=== PATIENT | female | born 1960 | race Hispanic/Latino ===

== ENCOUNTER → 2021-12-04 | Outpatient (CLI) | payer OTHER ==
[~2021-12-04] MED LIST: LIRA0.6P2 SQ; LOSA25TA41 PO; METF-444 PO; TYL3LL PO
== END | disposition home or self-care (01) ==
LOC: SHCH 08:21
PROVIDERS: ATTEND Internal Medicine
DX: I36.1 Nonrheumatic tricuspid (valve) insufficiency (principal); I51.7 Cardiomegaly
CPT/HCPCS: 93306

== ENCOUNTER 2022-03-07 05:51 | Day surgery (SDC) | payer OTHER ==
[2022-03-04 11:47] LABS: CREATININE 0.8 mg/dL (0.5-1.5); POTASSIUM 5.1 mmol/L (3.5-5.1)
[~2022-03-07] VITALS: Ht 154.9 cm; Wt 76.1 kg
[2022-03-07] VITALS (16 sets, daily range): BP systolic 124–143; BP diastolic 51–75
[2022-03-07] MEDS ORDERED: LACTATED RINGERS 1000ML 0 ML IV ONE (06:15)
[2022-03-07] MEDS ORDERED: 0.9%NACL 1000ML 1,000 ML IV ONE (06:42)
[2022-03-07] MEDS ORDERED: LIDOCAINE HCL 1% 20 ML VIAL ONE (07:21)
[2022-03-07] MEDS ORDERED: EPINEPHRINE 1 MG/ML 30ML VIAL IJ ONE (07:22)
[2022-03-07] MEDS ORDERED: MIDAZOLAM HCL 1 MG/ML 2ML VIAL ONE (07:24)
[2022-03-07] MEDS ORDERED: ONDANSETRON 4MG INJ ONE ×2 (07:24→10:00)
[2022-03-07] MEDS ORDERED: PROPOFOL 10 MG/ML 20ML VIAL IV ONE ×2 (07:24→08:02)
[2022-03-07] MEDS ORDERED: CIPROFLOXACIN HCL/DEXAMETH 7.5 ML DROPS.SUSP OTIC ONE ×2 (07:25→09:40)
[2022-03-07] MEDS ORDERED: ROCURONIUM 10MG/1ML SYR 10 MG/ML ML ONE (07:25)
[2022-03-07] MEDS ORDERED: FENTANYL CITRATE PF 50 MCG/1 ML 5ML AMP IV ONE (07:25)
[2022-03-07] MEDS ORDERED: LIDOCAINE 1%-EPI 1:100,000 20 ML VIAL IJ ONE ×2 (07:27→07:56)
[2022-03-07] MEDS ORDERED: MUPIROCIN OINTMENT 22 GM TUBE TP SCH (07:30)
[2022-03-07] MEDS ORDERED: CEFAZOLIN SODIUM 2 GM VIAL IV ONE (07:58)
[2022-03-07] MEDS ORDERED: EPHEDRINE SULFATE 50 MG/ML AMPULE ONE (08:00)
[2022-03-07] MEDS ORDERED: CEFAZOLIN SODIUM 1 GM VIAL ONE (08:02)
[2022-03-07] MEDS ORDERED: LIDOCAINE HCL 1% 20 ML VIAL MISC ONE (08:15)
[2022-03-07] MEDS ORDERED: GLYCOPYRROLATE 1 MG/5 ML SYRINGE ONE (09:46)
[2022-03-07] MEDS ORDERED: NEOSTIGMINE 5MG/5ML SYR IV ONE (09:46)
== END 2022-03-07 11:45 | disposition home or self-care (01) ==
LOC: SUH 05:51 → DAH 05:51 → SUH 11:45
PROVIDERS: ATTEND Otolaryngology
DX: H71.12 Cholesteatoma of tympanum, left ear (principal); H72.92 Unspecified perforation of tympanic membrane, left ear; K21.9 Gastro-esophageal reflux disease without esophagitis; E11.9 Type 2 diabetes mellitus without complications; Z79.899 Other long term (current) drug therapy
CPT/HCPCS: 36415; 69641; 80048; 82948 ×2; 87635; A4215; A4221; A4222; A4223; A4556; A4649; A4663; A6260; A6446; C1713; C9803; J0171; J0690 ×2; J2250; J2405 ×2; J2704 ×2; J2710; J3010; J3490 ×4; J7030; J7040; J7120